=== PATIENT | male | born 1990 | race Two or more races ===

== ENCOUNTER 2019-01-14 08:54 | Outpatient (CLI) | payer OTHER | END 2019-01-14 09:03 | disposition home or self-care (01) | LOC: TOM 08:54 | DX: K56.690 Other partial intestinal obstruction (principal) ==

== ENCOUNTER 2019-01-25 07:56 | Outpatient (CLI) | payer OTHER | END 2019-01-25 08:03 | disposition home or self-care (01) | LOC: RX STUDY 07:56 | DX: R10.84 Generalized abdominal pain (principal); R93.5 Abnormal findings on diagnostic imaging of other abdominal regions, including retroperitoneum; K56.600 Partial intestinal obstruction, unspecified as to cause; I88.0 Nonspecific mesenteric lymphadenitis ==

== ENCOUNTER 2019-08-24 08:10 | Outpatient (CLI) | payer OTHER | END 2019-08-24 09:00 | disposition home or self-care (01) | LOC: SONOGRAMA 08:10 → MAMO-SONO 08:15 → SONOGRAMA 09:00 | DX: K50.012 Crohn's disease of small intestine with intestinal obstruction (principal); Z90.49 Acquired absence of other specified parts of digestive tract; Z98.0 Intestinal bypass and anastomosis status ==

== ENCOUNTER 2020-08-15 16:27 | Emergency (ER) | payer OTHER ==
[~2020-08-15] VITALS: Ht 172.7 cm; Wt 54.4 kg
== END 2020-08-15 22:25 | disposition home or self-care (01) ==
LOC: ER 16:27
DX: H66.91 Otitis media, unspecified, right ear (principal)

== ENCOUNTER 2020-08-20 08:22 | Outpatient (CLI) | payer OTHER | END 2020-08-20 12:53 | disposition home or self-care (01) | LOC: TOM 08:22 | PROVIDERS: ATTEND General Practice | DX: K50.90 Crohn's disease, unspecified, without complications (principal); M54.89 Other dorsalgia; K68.19 Other retroperitoneal abscess; D72.829 Elevated white blood cell count, unspecified ==

== ENCOUNTER → 2020-09-30 | Outpatient (CLI) | payer OTHER | END | disposition home or self-care (01) | LOC: RAD 09:02 | PROVIDERS: ATTEND Internal Medicine Gastroenterology | DX: R10.84 Generalized abdominal pain (principal); N20.0 Calculus of kidney; R10.33 Periumbilical pain ==

== ENCOUNTER 2020-11-22 15:29 | Emergency (ER) | payer OTHER ==
[~2020-11-22] VITALS: Ht 175.3 cm; Wt 54.4 kg
[2020-11-22] MEDS ORDERED: IRON325 MG PO (20:51)
[2020-11-22] MEDS ORDERED: TYLOPHEN500 MG PO (20:51)
== END 2020-11-22 20:41 | disposition home or self-care (01) ==
LOC: ER 15:29
DX: B34.9 Viral infection, unspecified (principal); E61.1 Iron deficiency; Z03.818 Encounter for observation for suspected exposure to other biological agents ruled out

== ENCOUNTER 2020-11-23 09:13 | Emergency (ER) | payer OTHER ==
[~2020-11-23] VITALS: Ht 175.3 cm; Wt 54.4 kg
[~2020-11-23 09:13] MED LIST: IRON325 MG PO; TYLOPHEN500 MG PO
== END 2020-11-23 19:06 | disposition home or self-care (01) ==
LOC: ER 09:13
DX: R55 Syncope and collapse (principal); Z20.822 Contact with and (suspected) exposure to COVID-19

== ENCOUNTER 2020-11-24 23:26 | Inpatient (IN) | payer OTHER ==
[~2020-11-24] VITALS: Ht 175.3 cm; Wt 54.4 kg
== END 2020-12-01 21:46 | disposition home or self-care (01) | DRG 394 ==
LOC: ER 23:26 → MEDI 11-25 12:53
PROVIDERS: ADMIT Internal Medicine; ATTEND Internal Medicine
PROC: BW21ZZZ Computerized Tomography (CT Scan) of Abdomen and Pelvis (ICD-10-PCS; principal; 2020-11-25)
PROC: BW40ZZZ Ultrasonography of Abdomen (ICD-10-PCS; 2020-11-29)
DX: I88.0 Nonspecific mesenteric lymphadenitis (principal); K50.90 Crohn's disease, unspecified, without complications; E87.6 Hypokalemia; Z20.822 Contact with and (suspected) exposure to COVID-19; E86.0 Dehydration; E61.1 Iron deficiency; D69.6 Thrombocytopenia, unspecified

== ENCOUNTER 2021-06-12 09:04 | Emergency (ER) | payer OTHER ==
[~2021-06-12] VITALS: Ht 175.3 cm; Wt 54.4 kg
[2021-06-12] MEDS ORDERED: HUMIRA40 MG/0.2 (09:18)
== END 2021-06-12 10:48 | disposition home or self-care (01) ==
LOC: ER 09:04
DX: Z87.19 Personal history of other diseases of the digestive system (principal)

== ENCOUNTER 2021-08-19 17:36 | Emergency (ER) | payer OTHER ==
[~2021-08-19] VITALS: Ht 172.7 cm; Wt 50.8 kg
[~2021-08-19 17:36] MED LIST changes: +HUMIRA40 MG/0.2
== END 2021-08-19 22:25 | disposition home or self-care (01) ==
LOC: ER 17:36
DX: K52.89 Other specified noninfective gastroenteritis and colitis (principal); K50.00 Crohn's disease of small intestine without complications; R10.32 Left lower quadrant pain; R10.12 Left upper quadrant pain; Z03.818 Encounter for observation for suspected exposure to other biological agents ruled out

== ENCOUNTER 2022-10-29 21:04 | Emergency (ER) | payer OTHER ==
[~2022-10-29] VITALS: Ht 175.3 cm; Wt 54.4 kg
[2022-10-29] MEDS ORDERED: RENFLEXIS100 MG IV (21:17)
== END 2022-10-29 23:04 | disposition home or self-care (01) ==
LOC: ER 21:04
DX: R07.89 Other chest pain (principal); K50.80 Crohn's disease of both small and large intestine without complications